=== PATIENT | male | born 1995 | race Caucasian/White ===

== ENCOUNTER 2021-04-21 16:16 | Emergency (ER) | payer OTHER ==
[~2021-04-21] VITALS: Ht 177.8 cm; Wt 84.1 kg
[2021-04-21 20:08] VITALS: BP 139/88; PULSE 56; TEMP 97.6
== END 2021-04-21 20:08 | disposition home or self-care (01) ==
LOC: COL.ER 16:16
DX: S43.005A Unspecified dislocation of left shoulder joint, initial encounter (principal); Z87.828 Personal history of other (healed) physical injury and trauma; X50.1XXA Overexertion from prolonged static or awkward postures, initial encounter; Y99.0 Civilian activity done for income or pay
CPT/HCPCS: J2405; J2704; J3010; J7030

== ENCOUNTER 2022-06-10 16:38 | Emergency (ER) | payer BC ==
[~2022-06-10] VITALS: Ht 177.8 cm; Wt 77.3 kg
[2022-06-10 16:45] VITALS: BP 147/92
[2022-06-10 18:42] VITALS: PULSE 57
== END 2022-06-10 18:42 | disposition home or self-care (01) ==
LOC: COL.ER 16:38
DX: S61.211A Laceration without foreign body of left index finger without damage to nail, initial encounter (principal); S61.012A Laceration without foreign body of left thumb without damage to nail, initial encounter; Z23 Encounter for immunization; Z28.310 Unvaccinated for COVID-19; W26.8XXA Contact with other sharp object(s), not elsewhere classified, initial encounter